=== PATIENT | female | born 1960 | race African-American/Black ===

== ENCOUNTER → 2017-08-09 | Outpatient (CLI) | payer BC | LOC: MC.RAD 10:00 | DX: Z12.31 Encounter for screening mammogram for malignant neoplasm of breast (principal) ==

== ENCOUNTER → 2019-07-01 | Outpatient (CLI) | payer BC | LOC: MC.RAD 14:15 | DX: Z12.31 Encounter for screening mammogram for malignant neoplasm of breast (principal) ==

== ENCOUNTER → 2020-08-05 | Outpatient (CLI) | payer BC | LOC: MC.RAD 13:22 | DX: Z12.31 Encounter for screening mammogram for malignant neoplasm of breast (principal) ==

== ENCOUNTER 2021-03-09 08:44 | Day surgery (SDC) | payer BC ==
[~2021-03-09] VITALS: Ht 167.6 cm; Wt 79.3 kg
[2021-03-09 09:32] VITALS: BP 120/77; PULSE 77; TEMP 98.5
[2021-03-09] MEDS ORDERED: PLAQUENIL 200M200 MG PO (09:38)
[2021-03-09] MEDS ORDERED: JANUVIA 100MG100 MG PO (09:39)
[2021-03-09] MEDS ORDERED: LIPITOR20 MG PO (09:39)
[2021-03-09] MEDS ORDERED: HYGROTON 2525 MG/TAB PO (09:40)
[2021-03-09] MEDS ORDERED: FLINTSTONES W/I1 CTB PO (09:41)
[2021-03-09] MEDS ORDERED: CALCIUM 600MG+D1 TAB PO (09:41)
[2021-03-09 10:35] VITALS: BP 112/61; PULSE 66; TEMP 98
--- NOTE | 2021-03-09 10:35 | NUR ---
1035 - Patient arrives back to [facility] alert, denies pain or nausea. Patient ambulates from cart to chair with standby assist and without any complications. Paitent monitor applied, vitals stable. 1040 - Patient given sode, denies wanting any food. Patient's spouse at bedside. 1055 - Patient tolerating soda well and without any nausea. Vitals stable. 1105 - Dismissal instructions gone over with patient. Paitent voices understanding and all questions answered. 1115 - Patient discharged to private vehicle her spouse is driving at patient enterance via wheelchair without any complications. Patient leaves thanking staff for services.
[2021-03-09 10:50] VITALS: BP 107/57; PULSE 63
== END 2021-03-09 11:15 | disposition home or self-care (01) ==
LOC: SDCO 08:44
DX: Z12.11 Encounter for screening for malignant neoplasm of colon (principal); K57.30 Diverticulosis of large intestine without perforation or abscess without bleeding; I10 Essential (primary) hypertension; M19.90 Unspecified osteoarthritis, unspecified site; E11.9 Type 2 diabetes mellitus without complications; D64.9 Anemia, unspecified; E66.9 Obesity, unspecified; Z90.710 Acquired absence of both cervix and uterus; Z79.84 Long term (current) use of oral hypoglycemic drugs; Z79.891 Long term (current) use of opiate analgesic; Z79.899 Other long term (current) drug therapy; Z20.822 Contact with and (suspected) exposure to COVID-19
CPT/HCPCS: J2704; J7030

== ENCOUNTER → 2022-03-20 | Outpatient (CLI) | payer BC ==
[~2022-03-20] MED LIST: CALCIUM 600MG+D1 TAB PO; FLINTSTONES W/I1 CTB PO; HYGROTON 2525 MG/TAB PO; JANUVIA 100MG100 MG PO; LIPITOR20 MG PO; PLAQUENIL 200M200 MG PO
== END ==
LOC: MC.RAD 15:22
DX: Z12.31 Encounter for screening mammogram for malignant neoplasm of breast (principal)

== ENCOUNTER → 2024-06-04 | Outpatient (CLI) | payer BC | LOC: COL.VAS 12:20 | DX: L93.0 Discoid lupus erythematosus (principal); R07.9 Chest pain, unspecified ==